=== PATIENT | female | born 2000 | race African-American/Black ===

== ENCOUNTER 2022-04-18 05:50 | Emergency (ER) | payer MEDICAID ==
[~2022-04-18] VITALS: Ht 162.6 cm; Wt 47.4 kg
[2022-04-18 07:13] LABS: CLARITY URINE TURBID (CLEAR); COLOR URINE DARK YELLOW (YELLOW); KETONES URINE TRACE (NEGATIVE); LEUKOCYTE ESTERASE URINE 2+ (NEGATIVE); NITRITE URINE NEGATIVE (NEGATIVE); OCCULT BLOOD URINE 3+ (NEGATIVE); PH URINE 5.5 (4.5-8.0); PROTEIN URINE 3+ (NEGATIVE)
[2022-04-18] MEDS ORDERED: ACYCLOVIR 400 MG TABLET PO NR (07:30)
[2022-04-18] MEDS ORDERED: IBUP-2028 MT (07:32)
[2022-04-18] MEDS ORDERED: ACYC200C31 MT (07:32)
[2022-04-18 08:00] VITALS: BP 127/75
[2022-04-22 09:07] LABS: NEISSERIA GONORRHOEAE NAA Negative (Negative)
== END 2022-04-18 08:01 | disposition home or self-care (01) ==
LOC: ER 05:50
DX: A60.09 Herpesviral infection of other urogenital tract (principal); Z20.2 Contact with and (suspected) exposure to infections with a predominantly sexual mode of transmission; Z70.8 Other sex counseling
CPT/HCPCS: 81003; 81025; 87491; 87591; 99283